=== PATIENT | female | born 1950 | race Asian ===

== ENCOUNTER 2021-03-29 14:58 | Emergency (ER) | payer MEDICARE, OTHER ==
[~2021-03-29] VITALS: Ht 154.9 cm; Wt 59.0 kg
[~2021-03-29 14:58] MED LIST: ATOR10TA
--- NOTE | 2021-03-29 14:58 | NUR ---
PT BIB DAUGHTER C/O DIARRHEA AND WEAKNESS STARTED TUESDAY. 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 WILL CONTINUE TO MONITOR.
--- NOTE | 2021-03-29 15:40 | NUR ---
SEEN AND EXAMINED BY .
--- NOTE | 2021-03-29 15:45 | NUR ---
IV LINE ESTABLISHED BLOOD DRAWN AND SENT TO LAB.
[2021-03-29 15:59] LABS: BASOPHILS % (AUTO) 0.9 % (0.0-2.0); EOSINOPHILS % (AUTO) 1.6 % (0.0-6.0); HEMATOCRIT 40 % (33-45); HEMOGLOBIN 13.4 g/dL (11.5-14.8); LYMPHOCYTES # (AUTO) 1.3 /CMM (0.8-4.8); LYMPHOCYTES % (AUTO) 31.9 % (20.0-44.0); MEAN CORPUSCULAR HGB CONC 33 g/dl (31.0-36.0); MEAN CORPUSCULAR VOLUME 91 fL (82-100); MONOCYTES # (AUTO) 0.5 /CMM (0.1-1.30); NEUTROPHILS # (AUTO) 2.1 /CMM (1.8-8.9); NEUTROPHILS % (AUTO) 53.6 % (43.0-81.0); PLATELET COUNT (AUTO) 180 /CMM (150-450); RED BLOOD CELL COUNT(AUTO) 4.42 MIL/uL (4.0-5.2)
[2021-03-29] MEDS ORDERED: ACETAMINOPHEN ES 500 MG TABLET ONE (15:59)
[2021-03-29] MEDS ORDERED: ACETAMINOPHEN ES 500 MG TABLET PO ONE (16:00)
[2021-03-29] MEDS ORDERED: IV NS 0.9% 1,000 ML BAG IV ONE (16:00)
[2021-03-29 16:11] LABS: CALCIUM, SERUM 8.5 mg/dL (8.5-10.1); CREATININE 0.8 mg/dL (0.6-1.3); POTASSIUM 3.8 mmol/L (3.5-5.1)
[2021-03-29 16:17] LABS: ALBUMIN 3.5 g/dL (3.4-5.0); BILIRUBIN,DIRECT 0.1 mg/dL (0.0-0.2); BILIRUBIN,TOTAL 0.5 mg/dL (0.2-1.0); TOTAL PROTEIN, SERUM 7.3 g/dL (6.4-8.2)
--- NOTE | 2021-03-29 16:47 | NUR ---
PT IS WHEELED TO CT SCAN VIA [facility]
[2021-03-29] MEDS ORDERED: IV NS 0.9% 250 ML IV ONE (16:49)
[2021-03-29] MEDS ORDERED: IOHEXOL-300 100 ML VIAL IV ONE (16:49)
[2021-03-29] MEDS ORDERED: CT SWABBABLE VALVE TRANS SET 1 EA INFUS.SET MC ONE (16:49)
[2021-03-29 17:05] LABS: NT-PRO BNP 47 pg/mL (0-125)
[2021-03-29 17:56] LABS: BILIRUBIN,URINE NEGATIVE (NEGATIVE); LEUKOCYTE ESTERASE ,URINE NEGATIVE (NEGATIVE); NITRITE, URINE NEGATIVE (NEGATIVE); PROTEIN,URINE NEGATIVE (NEGATIVE); UGLUCOSE NEGATIVE (NEGATIVE); UROBILINOGEN,URINE 0.2 EU/dL (0.2)
[2021-03-29 17:57] LABS: COLOR,URINE OTHER (YELLOW)
[2021-03-29 18:46] VITALS: BP 127/72
--- NOTE | 2021-03-29 18:46 | NUR ---
IV removed. Catheter intact and site benign. Pressure and 4x4 applied to site. No bleeding noted. Patient discharged to home in stable condition. Written and verbal after care instructions given. Patient verbalizes understanding of instruction.
== END 2021-03-29 18:47 | disposition home or self-care (01) ==
LOC: ER 15:21
DX: R19.7 Diarrhea, unspecified (principal); E78.00 Pure hypercholesterolemia, unspecified; Z79.899 Other long term (current) drug therapy
CPT/HCPCS: 36415; 74177; 80048; 80076; 81003; 83690; 83880; 84484; 85025; 93005; 96360; 99285; J7030; J7050; Q9967